=== PATIENT | female | born 1965 | race Caucasian/White ===

== ENCOUNTER 2017-07-15 15:29 | Emergency (ER) | payer SELFPAY ==
[~2017-07-15] VITALS: Ht 160 cm; Wt 64.0 kg
[~2017-07-15 15:29] MED LIST: AMOXICILLIN500 MG PO; AMOXIL500 MG OR; AUGMENTIN875TAB PO; B/P MED; BACTRIM DS1 TAB PO; COMBIVENT IN; DIOVAN HC1 OR; ELIMITE5 % EX; KEFLEX500 M1 PO; LASIX20 MG OR; LOPROX0.771 EX; LORTAB 7.5-3251 TAB PO; MUCINEX600 MG PO; SEPTRA DS1 TAB OR; ZITHROMAX250 MG PO
[2017-07-15 16:21] LABS: URINE BILIRUBIN - DIPSTICK NEGATIVE (NEGATIVE); URINE BLOOD DIPSTICK TRACE-INTACT (NEGATIVE); URINE CLARITY CLEAR; URINE COLOR YELLOW; URINE GLUCOSE - DIPSTICK NEGATIVE (NEGATIVE); URINE KETONE NEGATIVE (NEGATIVE); URINE LEUK ESTERASE NEGATIVE (NEGATIVE); URINE NITRITE - DIPSTICK NEGATIVE (Negative); URINE PROTEIN - DIPSTICK NEGATIVE (NEG-TRACE); URINE SPECIFIC GRAVITY >=1.030; URINE UROBILINOGEN - DIPSTICK 0.2 E.U./dL (0.2)
[2017-07-15 16:31] LABS: HEMATOCRIT 36.1 % (37.0-47.0); HEMOGLOBIN 12.2 g/dl (12.0-16.0); IMMATURE GRANULOCYTES 0.3 % (0.0-1.0); MEAN CELL VOLUME 97.6 fL CALC (80.0-100.0); MEAN CORPUSCULAR HGB CONC 33.8 g/L CALC (32.0-36.0); NEUT# 4.37 thou/uL (2.00-7.15); RED BLOOD COUNT 3.7 mill/uL (4.20-5.60); RED CELL DISTRI WIDTH 12.6 % (11.5-15.5)
[2017-07-15 16:58] LABS: ALKALINE PHOSPHATASE 85 u/l (38-126); ANION GAP 14 (6-22 (CALC)); BILIRUBIN, TOTAL 0.5 mg/dL (0.0-1.4); BUN 13 mg/dL (7-17); BUN/CREATININE RATIO 14 (12-20 (CALC)); CALCIUM 9.7 mg/dL (8.4-10.2); CARBON DIOXIDE 26 mmol/l (22-30); CHLORIDE 109 mmol/l (95-108); CREATININE 0.9 mg/dL (0.5-1.0); GFR > 60 ML/MIN (>=60 (CALC)); GFR FOR AFR.AMER. > 60 ML/MIN (>=60 (CALC)); GLUCOSE 115 mg/dL (65-105); POTASSIUM 4.1 mmol/l (3.5-5.1); SGOT/AST 18 u/l (14-36); SGPT/ALT 26 u/l (9-52); SODIUM 145 mmol/l (137-146); TOTAL PROTEIN 6.8 g/dL (6.3-8.2)
[2017-07-15 17:13] LABS: BETA-HCG, QUANT(RESULT NUMBER) <2 mIU/mL
[2017-07-15 20:00] VITALS: BP 168/66
== END 2017-07-15 20:00 | disposition home or self-care (01) | DRG 761 ==
LOC: ED 15:29
PROVIDERS: Family Medicine
DX: N93.8 Other specified abnormal uterine and vaginal bleeding (principal); F17.210 Nicotine dependence, cigarettes, uncomplicated

== ENCOUNTER 2017-10-20 12:07 | Emergency (ER) | payer SELFPAY ==
[~2017-10-20] VITALS: Ht 160 cm; Wt 63.0 kg
[2017-10-20 14:30] VITALS: BP 149/84
== END 2017-10-20 14:30 | disposition home or self-care (01) | DRG 607 ==
LOC: ED 12:07
DX: R22.41 Localized swelling, mass and lump, right lower limb (principal); M79.604 Pain in right leg; S80.811A Abrasion, right lower leg, initial encounter

== ENCOUNTER 2017-11-13 04:09 | Emergency (ER) | payer SELFPAY ==
[~2017-11-13] VITALS: Ht 160 cm; Wt 74.0 kg
[2017-11-13 04:37] LABS: HEMATOCRIT 35.5 % (37.0-47.0); HEMOGLOBIN 11.9 g/dl (12.0-16.0); IMMATURE GRANULOCYTES 0.1 % (0.0-1.0); MEAN CORPUSCULAR HGB 32.5 pG CALC (26.0-32.0); MEAN CORPUSCULAR HGB CONC 33.5 g/L CALC (32.0-36.0); NEUT# 4.73 thou/uL (2.00-7.15); RED BLOOD COUNT 3.66 mill/uL (4.20-5.60); RED CELL DISTRI WIDTH 12.2 % (11.5-15.5)
[2017-11-13 04:43] LABS: ANION GAP 15 (6-22 (CALC)); BUN 16 mg/dL (7-17); BUN/CREATININE RATIO 19 (12-20 (CALC)); CARBON DIOXIDE 26 mmol/l (22-30); CHLORIDE 104 mmol/l (95-108); CREATININE 0.8 mg/dL (0.5-1.0); GFR > 60 ML/MIN (>=60 (CALC)); GFR FOR AFR.AMER. > 60 ML/MIN (>=60 (CALC)); POTASSIUM 3.6 mmol/l (3.5-5.1); SODIUM 141 mmol/l (137-146)
[2017-11-13 04:59] LABS: COCAINE NEGATIVE (NEGATIVE); TETRAHYDROCANNABIONOL NEGATIVE (NEGATIVE)
[2017-11-13 05:00] LABS: BARBITURATES NEGATIVE (NEGATIVE); METHADONE NEGATIVE (NEGATIVE); OXCYCODONE NEGATIVE (NEGATIVE); TRICYLIC ANTIDEPRESSANTS NEGATIVE (NEGATIVE)
[2017-11-13] MEDS ORDERED: PERMETHRIN5 % EX (05:02)
[2017-11-13] MEDS ORDERED: DOXYCYCL HYC100 MG PO (05:02)
[2017-11-13 05:15] VITALS: BP 167/86
== END 2017-11-13 05:15 | disposition home or self-care (01) | DRG 607 ==
LOC: ED 04:09
PROVIDERS: Family Medicine
DX: B86 Scabies (principal); L03.113 Cellulitis of right upper limb; L03.114 Cellulitis of left upper limb

== ENCOUNTER 2018-07-17 16:21 | Emergency (ER) | payer SELFPAY ==
[~2018-07-17] VITALS: Ht 160 cm; Wt 64.0 kg
[~2018-07-17 16:21] MED LIST changes: +DOXYCYCL HYC100 MG PO; +PERMETHRIN5 % EX
[2018-07-17] MEDS ORDERED: NAPROSYN500 MG PO (17:42)
[2018-07-17 17:50] VITALS: BP 139/74
== END 2018-07-17 17:50 | disposition home or self-care (01) | DRG 563 ==
LOC: ED 16:21
DX: S63.92XA Sprain of unspecified part of left wrist and hand, initial encounter (principal); X58.XXXA Exposure to other specified factors, initial encounter; Y93.E1 Activity, personal bathing and showering; Y92.002 Bathroom of unspecified non-institutional (private) residence as the place of occurrence of the external cause

== ENCOUNTER 2019-01-23 07:14 | Emergency (ER) | payer SELFPAY ==
[~2019-01-23] VITALS: Ht 154.9 cm; Wt 59.1 kg
[~2019-01-23 07:14] MED LIST changes: +NAPROSYN500 MG PO
[2019-01-23] MEDS ORDERED: DOXYCYC MONO100 M2 PO (07:37)
[2019-01-23 07:41] VITALS: BP 161/78
[2019-01-23] MEDS ORDERED: ZPAK PO (07:43)
== END 2019-01-23 07:45 | disposition home or self-care (01) | DRG 153 ==
LOC: ED 07:14
DX: J06.9 Acute upper respiratory infection, unspecified (principal); F17.210 Nicotine dependence, cigarettes, uncomplicated

== ENCOUNTER 2019-04-26 13:53 | Emergency (ER) | payer SELFPAY ==
[~2019-04-26] VITALS: Ht 160 cm; Wt 68.1 kg
[~2019-04-26 13:53] MED LIST changes: +DOXYCYC MONO100 M2 PO; +ZPAK PO
[2019-04-26 14:11] VITALS: BP 187/81
== END 2019-04-26 15:24 | disposition home or self-care (01) | DRG 605 ==
LOC: ED 13:53
PROC: 2W3JX1Z Immobilization of Right Finger using Splint (ICD-10-PCS; principal; 2019-04-26)
DX: S60.410A Abrasion of right index finger, initial encounter (principal); F17.200 Nicotine dependence, unspecified, uncomplicated; W23.0XXA Caught, crushed, jammed, or pinched between moving objects, initial encounter; Y92.009 Unspecified place in unspecified non-institutional (private) residence as the place of occurrence of the external cause

== ENCOUNTER 2019-05-23 00:46 | Emergency (ER) | payer SELFPAY ==
[~2019-05-23] VITALS: Ht 160 cm; Wt 68.2 kg
[2019-05-23] MEDS ORDERED: KEFLEX500 M1 PO (01:38)
[2019-05-23 02:07] VITALS: BP 141/81
== END 2019-05-23 02:00 | disposition home or self-care (01) | DRG 605 ==
LOC: ED 00:46
DX: S61.217A Laceration without foreign body of left little finger without damage to nail, initial encounter (principal); M25.842 Other specified joint disorders, left hand; F17.200 Nicotine dependence, unspecified, uncomplicated; Z59.0 Homelessness; X99.1XXA Assault by knife, initial encounter

== ENCOUNTER 2019-08-21 07:58 | Emergency (ER) | payer SELFPAY ==
[~2019-08-21] VITALS: Ht 160 cm; Wt 79.0 kg
[2019-08-21 08:39] LABS: HEMATOCRIT 37.8 % (37.0-47.0); HEMOGLOBIN 12.6 g/dl (12.0-16.0); IMMATURE GRANULOCYTES 0.2 % (0.0-5.0); MEAN CELL VOLUME 96.9 fL CALC (80.0-100.0); MEAN CORPUSCULAR HGB 32.3 pG CALC (26.0-32.0); MEAN CORPUSCULAR HGB CONC 33.3 g/L CALC (32.0-36.0); NEUT# 3.39 thou/uL (2.00-7.15); RED BLOOD COUNT 3.9 mill/uL (4.20-5.60); RED CELL DISTRI WIDTH 12.6 % (11.5-15.5)
[2019-08-21 08:44] LABS: URINE BILIRUBIN - DIPSTICK NEGATIVE (NEGATIVE); URINE BLOOD DIPSTICK NEGATIVE (NEGATIVE); URINE COLOR YELLOW; URINE GLUCOSE - DIPSTICK NEGATIVE (NEGATIVE); URINE KETONE NEGATIVE (NEGATIVE); URINE LEUK ESTERASE NEGATIVE (NEGATIVE); URINE NITRITE - DIPSTICK NEGATIVE (Negative); URINE PROTEIN - DIPSTICK NEGATIVE (NEG-TRACE); URINE SPECIFIC GRAVITY 1.025; URINE UROBILINOGEN - DIPSTICK 0.2 E.U./dL (0.2)
[2019-08-21 08:52] LABS: ALKALINE PHOSPHATASE 86 u/l (38-126); ANION GAP 14 (6-22 (CALC)); BILIRUBIN, TOTAL 0.3 mg/dL (0.0-1.4); BUN 12 mg/dL (7-17); BUN/CREATININE RATIO 20 (12-20 (CALC)); CARBON DIOXIDE 25 mmol/l (22-30); CHLORIDE 107 mmol/l (95-108); CREATININE 0.6 mg/dL (0.5-1.0); GFR > 60 ML/MIN (>=60 (CALC)); GFR FOR AFR.AMER. > 60 ML/MIN (>=60 (CALC)); LIPASE 86 u/l (23-300); POTASSIUM 3.7 mmol/l (3.5-5.1); SGOT/AST 25 u/l (14-36); SODIUM 142 mmol/l (137-146); TOTAL PROTEIN 7.2 g/dL (6.3-8.2)
[2019-08-21] MEDS ORDERED: LOMOTIL2.5 MG PO (09:30)
[2019-08-21] MEDS ORDERED: METRONIDAZOL500 MG PO (09:30)
[2019-08-21 09:49] VITALS: BP 177/80
== END 2019-08-21 10:00 | disposition home or self-care (01) | DRG 392 ==
LOC: ED 07:58
DX: R11.2 Nausea with vomiting, unspecified (principal); R19.7 Diarrhea, unspecified; R10.9 Unspecified abdominal pain

== ENCOUNTER 2020-01-06 | Emergency (ER) | payer SELFPAY ==
[~2020-01-06] MED LIST changes: +LOMOTIL2.5 MG PO; +METRONIDAZOL500 MG PO
[2020-01-06] MEDS ORDERED: TRAMADOL HYDROC50 M1 PO (09:25)
[2020-01-06] MEDS ORDERED: CEPHALEXIN500 M1 PO (09:29)
== END 2020-01-06 09:40 | disposition home or self-care (01) | DRG 563 ==
PROC: 0H9 Skin and Breast, Drainage (ICD-10-PCS; principal; 2020-01-06)
DX: S92.422A Displaced fracture of distal phalanx of left great toe, initial encounter for closed fracture (principal); S90.212A Contusion of left great toe with damage to nail, initial encounter; F17.200 Nicotine dependence, unspecified, uncomplicated; W22.8XXA Striking against or struck by other objects, initial encounter

== ENCOUNTER 2020-02-04 | Emergency (ER) | payer SELFPAY ==
[~2020-02-04] MED LIST changes: +CEPHALEXIN500 M1 PO; +TRAMADOL HYDROC50 M1 PO
[2020-02-04 15:46] LABS: HEMATOCRIT 36.9 % (37.0-47.0); HEMOGLOBIN 12.5 g/dl (12.0-16.0); IMMATURE GRANULOCYTES 0.3 % (0.0-5.0); MEAN CELL VOLUME 94.9 fL CALC (80.0-100.0); MEAN CORPUSCULAR HGB 32.1 pG CALC (26.0-32.0); MEAN CORPUSCULAR HGB CONC 33.9 g/dL CAL (32.0-36.0); NEUT# 6.59 thou/uL (2.00-7.15); RED BLOOD COUNT 3.89 mill/uL (4.20-5.60); RED CELL DISTRI WIDTH 13.2 % (11.5-15.5)
[2020-02-04 16:14] LABS: ALBUMIN 4.8 g/dL (3.2-5.0); ALKALINE PHOSPHATASE 93 u/l (38-126); BUN 17 mg/dL (7-17); BUN/CREATININE RATIO 21 (12-20 (CALC)); CARBON DIOXIDE 25 mmol/l (22-30); CHLORIDE 101 mmol/l (95-108); CREATININE 0.8 mg/dL (0.5-1.0); GFR > 60 ML/MIN (>=60 (CALC)); GFR FOR AFR.AMER. > 60 ML/MIN (>=60 (CALC)); SGOT/AST 29 u/l (14-36); SODIUM 137 mmol/l (137-146); TOTAL PROTEIN 8.6 g/dL (6.3-8.2)
[2020-02-04 16:15] LABS: ANION GAP 16 (6-22 (CALC)); BILIRUBIN, TOTAL 0.9 mg/dL (0.0-1.4); POTASSIUM 4.5 mmol/l (3.5-5.1)
[2020-02-04 16:20] LABS: URINE BLOOD DIPSTICK NEGATIVE (NEGATIVE); URINE COLOR YELLOW; URINE GLUCOSE - DIPSTICK NEGATIVE (NEGATIVE); URINE KETONE 15 mg/dL (NEGATIVE); URINE LEUK ESTERASE NEGATIVE (NEGATIVE); URINE NITRITE - DIPSTICK NEGATIVE (Negative); URINE PH 5.5 (4.5-8.0); URINE PROTEIN - DIPSTICK NEGATIVE (NEG-TRACE); URINE SPECIFIC GRAVITY >=1.030; URINE UROBILINOGEN - DIPSTICK 0.2 E.U./dL (0.2)
[2020-02-04 16:24] LABS: COCAINE NEGATIVE (NEGATIVE); TETRAHYDROCANNABIONOL NEGATIVE (NEGATIVE); URINE BILIRUBIN - DIPSTICK NEGATIVE (NEGATIVE)
[2020-02-04 16:25] LABS: BARBITURATES NEGATIVE (NEGATIVE); METHADONE NEGATIVE (NEGATIVE); OXCYCODONE NEGATIVE (NEGATIVE); TRICYLIC ANTIDEPRESSANTS NEGATIVE (NEGATIVE)
[2020-02-04] MEDS ORDERED: MOTRIN400 MG PO (17:19)
== END 2020-02-04 17:35 | disposition home or self-care (01) | DRG 563 ==
PROVIDERS: Family Medicine
DX: S82.62XA Displaced fracture of lateral malleolus of left fibula, initial encounter for closed fracture (principal); S92.312A Displaced fracture of first metatarsal bone, left foot, initial encounter for closed fracture; M25.561 Pain in right knee; F17.210 Nicotine dependence, cigarettes, uncomplicated; W01.0XXA Fall on same level from slipping, tripping and stumbling without subsequent striking against object, initial encounter; Y92.410 Unspecified street and highway as the place of occurrence of the external cause

== ENCOUNTER 2021-06-15 19:23 | Emergency (ER) | payer SELFPAY ==
[~2021-06-15] VITALS: Ht 162.6 cm; Wt 68.0 kg
[~2021-06-15 19:23] MED LIST changes: +MOTRIN400 MG PO
[2021-06-15 22:05] VITALS: BP 161/82
== END 2021-06-15 22:05 | disposition home or self-care (01) | DRG 153 ==
LOC: ED 19:23
DX: J02.9 Acute pharyngitis, unspecified (principal); F17.200 Nicotine dependence, unspecified, uncomplicated; Z20.822 Contact with and (suspected) exposure to COVID-19

== ENCOUNTER 2021-08-30 14:33 | Emergency (ER) | payer SELFPAY ==
[~2021-08-30] VITALS: Ht 162.6 cm; Wt 90.0 kg
[2021-08-30 15:05] VITALS: BP 167/74
[2021-08-30] MEDS ORDERED: TRAMADOL HYDROC50 M1 PO (17:06)
[2021-08-30] MEDS ORDERED: MOTRIN400 MG/TAB PO (17:07)
== END 2021-08-30 17:15 | disposition home or self-care (01) | DRG 556 ==
LOC: ED 14:33
DX: M25.511 Pain in right shoulder (principal); F17.200 Nicotine dependence, unspecified, uncomplicated

== ENCOUNTER 2021-10-26 18:30 | Emergency (ER) | payer SELFPAY ==
[~2021-10-26] VITALS: Ht 162.6 cm; Wt 100.0 kg
[~2021-10-26 18:30] MED LIST changes: +MOTRIN400 MG/TAB PO
[2021-10-26 19:30] VITALS: BP 174/90
[2021-10-26] MEDS ORDERED: GUAIFENESIN AC PO (19:59)
[2021-10-26] MEDS ORDERED: AMOXICILLIN875 MG PO (19:59)
== END 2021-10-26 20:15 | disposition home or self-care (01) | DRG 203 ==
LOC: ED 18:30
DX: J20.9 Acute bronchitis, unspecified (principal); F17.210 Nicotine dependence, cigarettes, uncomplicated; Z20.822 Contact with and (suspected) exposure to COVID-19

== ENCOUNTER 2022-03-01 18:16 | Emergency (ER) | payer SELFPAY ==
[~2022-03-01] VITALS: Ht 162.6 cm; Wt 90.7 kg
[~2022-03-01 18:16] MED LIST changes: +AMOXICILLIN875 MG PO; +GUAIFENESIN AC PO
[2022-03-01 18:27] VITALS: BP 186/84
[2022-03-01 18:30] VITALS: BP 180/90
[2022-03-01] MEDS ORDERED: AMOX/K CLAV875 M1 PO (18:57)
[2022-03-01 19:26] VITALS: BP 186/84
== END 2022-03-01 19:30 | disposition home or self-care (01) | DRG 605 ==
LOC: ED 18:16
DX: S81.852A Open bite, left lower leg, initial encounter (principal); F17.200 Nicotine dependence, unspecified, uncomplicated; W54.0XXA Bitten by dog, initial encounter; Y92.009 Unspecified place in unspecified non-institutional (private) residence as the place of occurrence of the external cause

== ENCOUNTER 2022-10-03 13:01 | Emergency (ER) | payer SELFPAY ==
[~2022-10-03 13:01] MED LIST changes: +AMOX/K CLAV875 M1 PO
== END 2022-10-03 14:48 | disposition left against medical advice (07) | DRG 951 ==
LOC: ED 13:01 → LWOBS 14:30
DX: Z53.21 Procedure and treatment not carried out due to patient leaving prior to being seen by health care provider (principal)

== ENCOUNTER 2022-11-24 00:24 | Emergency (ER) | payer SELFPAY ==
[~2022-11-24] VITALS: Ht 162.6 cm; Wt 90.0 kg
[2022-11-24] MEDS ORDERED: AMOX/K CLAV875 M1 PO (02:15)
[2022-11-24 02:25] VITALS: BP 173/90
== END 2022-11-24 02:35 | disposition home or self-care (01) | DRG 605 ==
LOC: ED 00:24
PROC: 0HQGXZZ Repair Left Hand Skin, External Approach (ICD-10-PCS; principal; 2022-11-24)
DX: S61.452A Open bite of left hand, initial encounter (principal); W54.0XXA Bitten by dog, initial encounter

== ENCOUNTER 2023-02-05 12:54 | Emergency (ER) | payer SELFPAY ==
[~2023-02-05] VITALS: Ht 162.6 cm; Wt 82.0 kg
[2023-02-05] MEDS ORDERED: PREDNISONE20 MG PO ×2 (16:06→16:15)
[2023-02-05] MEDS ORDERED: ZYRTEC10 MG PO ×2 (16:06→16:15)
[2023-02-05] MEDS ORDERED: ZPAK PO ×2 (16:06→16:15)
[2023-02-05 16:26] VITALS: BP 148/81
[2023-02-05] MEDS ORDERED: PROAIR HFA IN (16:43)
== END 2023-02-05 16:30 | disposition home or self-care (01) | DRG 203 ==
LOC: ED 12:54
DX: J45.909 Unspecified asthma, uncomplicated (principal); I10 Essential (primary) hypertension; F17.210 Nicotine dependence, cigarettes, uncomplicated; Z59.00 Homelessness unspecified

== ENCOUNTER 2023-10-10 20:27 | Emergency (ER) | payer SELFPAY ==
[~2023-10-10] VITALS: Ht 162.6 cm; Wt 99.8 kg
[~2023-10-10 20:27] MED LIST changes: +PREDNISONE20 MG PO; +PROAIR HFA IN; +ZYRTEC10 MG PO
[2023-10-10 21:08] VITALS: BP 189/87
[2023-10-10 21:32] VITALS: BP 179/79
[2023-10-10 21:56] LABS: BASO% 0.5 % (0-3); EOS% 3.1 % (0-8); HEMATOCRIT 40.5 % (37.0-47.0); IMMATURE GRANULOCYTES 0.2 % (0.0-5.0); LYMPH% 40.4 % (15-41); MEAN CELL VOLUME 100.5 fL CALC (80.0-100.0); MEAN CORPUSCULAR HGB 32.3 pG CALC (26.0-32.0); MEAN CORPUSCULAR HGB CONC 32.1 g/dL CAL (32.0-36.0); MONO% 5.5 % (2-13); NEUT# 4.29 thou/uL (2.00-7.15); NEUT% 50.3 % (42-76); RED BLOOD COUNT 4.03 mill/uL (4.20-5.60); RED CELL DISTRI WIDTH 12.8 % (11.5-15.5)
[2023-10-10 22:01] VITALS: BP 135/56
[2023-10-10 22:03] LABS: URINE BILIRUBIN - DIPSTICK Negative (NEGATIVE); URINE BLOOD DIPSTICK Negative (NEGATIVE); URINE GLUCOSE - DIPSTICK Negative (NEGATIVE); URINE KETONE Negative (NEGATIVE); URINE LEUK ESTERASE Negative (NEGATIVE); URINE NITRITE - DIPSTICK Negative (Negative); URINE PROTEIN - DIPSTICK Negative (NEG-TRACE); URINE SPECIFIC GRAVITY >=1.030; URINE UROBILINOGEN - DIPSTICK 0.2 E.U./dL (0.2)
[2023-10-10 22:05] LABS: ALBUMIN 4.3 g/dL (3.2-5.0); ALKALINE PHOSPHATASE 134 u/l (38-126); AMYLASE 46 u/l (30-110); ANION GAP 9 (6-22 (CALC)); BILIRUBIN, TOTAL 0.3 mg/dL (0.02-1.3); BUN 17 mg/dL (7-17); BUN/CREATININE RATIO 24 (12-20 (CALC)); CARBON DIOXIDE 29 mmol/l (22-30); CHLORIDE 108 mmol/l (95-108); CREATININE 0.7 mg/dL (0.5-1.0); GFR FOR AFR.AMER. > 60 ML/MIN (>=60 (CALC)); GFR OTHER RACES > 60 ML/MIN (>=60 (CALC)); LIPASE 68 u/l (23-300); POTASSIUM 3.9 mmol/l (3.5-5.1); SGOT/AST 30 u/l (14-36); SODIUM 142 mmol/l (137-146); TOTAL PROTEIN 7.5 g/dL (6.3-8.2)
[2023-10-10 22:18] LABS: URINE COLOR Yellow
[2023-10-10 22:31] VITALS: BP 167/88
[2023-10-11] MEDS ORDERED: PROTONIX40 M2 PO (01:28)
[2023-10-11] MEDS ORDERED: LASIX 40 MG TAB40 MG PO (01:33)
[2023-10-11 01:51] VITALS: BP 162/97
== END 2023-10-11 01:49 | disposition home or self-care (01) | DRG 392 ==
LOC: ED 20:27
PROVIDERS: Emergency Medicine
DX: K29.00 Acute gastritis without bleeding (principal); I10 Essential (primary) hypertension; F17.210 Nicotine dependence, cigarettes, uncomplicated
CPT/HCPCS: Q9967

== ENCOUNTER 2024-05-27 09:56 | Emergency (ER) | payer SELFPAY ==
[~2024-05-27] VITALS: Ht 162.6 cm; Wt 136.0 kg
[~2024-05-27 09:56] MED LIST changes: +LASIX 40 MG TAB40 MG PO; +PROTONIX40 M2 PO
[2024-05-27 10:04] VITALS: BP 185/79
[2024-05-27 10:31] VITALS: BP 139/57
[2024-05-27 11:01] VITALS: BP 138/79
[2024-05-27] MEDS ORDERED: VENTOLIN HFA108 MCG PO (12:21)
[2024-05-27] MEDS ORDERED: PREDNISONE50 MG PO (12:21)
[2024-05-27 12:26] VITALS: BP 138/79
== END 2024-05-27 12:30 | disposition home or self-care (01) | DRG 153 ==
LOC: ED 09:56
DX: J06.9 Acute upper respiratory infection, unspecified (principal); I10 Essential (primary) hypertension; F17.200 Nicotine dependence, unspecified, uncomplicated; Z20.822 Contact with and (suspected) exposure to COVID-19

== ENCOUNTER 2024-06-30 10:27 | Observation (INO) | payer SELFPAY ==
[2024-06-30] VITALS (15 sets, daily range): BP systolic 101–187; BP diastolic 48–136
[~2024-06-30] VITALS: Ht 162.6 cm; Wt 100.0 kg
[~2024-06-30 10:27] MED LIST changes: +PREDNISONE50 MG PO; +VENTOLIN HFA108 MCG PO
[2024-06-30 11:05] LABS: BASO% 0.4 % (0-3); EOS% 2.5 % (0-8); HEMATOCRIT 42.3 % (37.0-47.0); HEMOGLOBIN 13.8 g/dl (12.0-16.0); IMMATURE GRANULOCYTES 0.1 % (0.0-5.0); LYMPH% 29.5 % (15-41); MEAN CELL VOLUME 100.2 fL CALC (80.0-100.0); MEAN CORPUSCULAR HGB 32.7 pG CALC (26.0-32.0); MEAN CORPUSCULAR HGB CONC 32.6 g/dL CAL (32.0-36.0); MONO% 5.5 % (2-13); NEUT# 5.14 thou/uL (2.00-7.15); RED BLOOD COUNT 4.22 mill/uL (4.20-5.60)
[2024-06-30 11:16] LABS: ALBUMIN 4.4 g/dL (3.2-5.0); ALKALINE PHOSPHATASE 90 u/l (38-126); BUN 15 mg/dL (7-17); BUN/CREATININE RATIO 22 (12-20 (CALC)); CARBON DIOXIDE 31 mmol/l (22-30); CHLORIDE 108 mmol/l (95-108); CREATININE 0.7 mg/dL (0.5-1.0); ESTIMATED GFR 101 ML/MIN (>=90 (CALC)); SGOT/AST 48 u/l (14-36); SODIUM 140 mmol/l (137-146); TOTAL PROTEIN 7.8 g/dL (6.3-8.2)
[2024-06-30 11:17] LABS: ANION GAP 6 (6-22 (CALC)); BILIRUBIN, TOTAL 0.8 mg/dL (0.02-1.3); POTASSIUM 4.7 mmol/l (3.5-5.1)
[2024-06-30] MEDS ORDERED: methylPREDNISolone SODIUM SUCC 125 MG/2 ML SDV IV ONE (11:30)
[2024-06-30] MEDS ORDERED: IPRATROPIUM-Albuterol 0.5MG-2.5MG/3 ML NEB ONE ×2 (11:30)
[2024-06-30] MEDS ORDERED: AZITHROMYCIN 500 MG in SODIUM CHLORIDE 0.9% 250 ML IV ONE (12:55)
[2024-06-30] MEDS ORDERED: MAGNESIUM HYDROXIDE 30 ML UDC PO PRN (13:00)
[2024-06-30] MEDS ORDERED: ACETAMINOPHEN 325 MG/TAB PO PRN (13:00)
[2024-06-30] MEDS ORDERED: IPRATROPIUM-Albuterol 0.5MG-2.5MG/3 ML NEB PRN (13:00)
[2024-06-30] MEDS ORDERED: NICOTINE TRANSDERMAL 21 MG/PATCH TD SCH (15:00)
[2024-06-30] MEDS ORDERED: AZITHROMYCIN 500 MG in SODIUM CHLORIDE 0.9% 250 ML IV SCH (16:30)
[2024-06-30] MEDS ORDERED: hydrALAZINE HCL 20 MG/ML VIAL(1 ML) IV PRN (20:45)
[2024-06-30] MEDS ORDERED: ENOXAPARIN SODIUM 40 MG/0.4 ML SYR SC SCH (21:00)
[2024-06-30] MEDS ORDERED: methylPREDNISolone Sod Succ 40 MG/ML SDV IV SCH (21:00)
[2024-07-01 00:21] VITALS: BP 149/87
[2024-07-01 04:20] VITALS: BP 123/54
[2024-07-01 04:22] LABS: ALBUMIN 4.3 g/dL (3.2-5.0); CREATININE 0.7 mg/dL (0.5-1.0); MAGNESIUM 1.9 mg/dL (1.6-2.3); POTASSIUM 3.9 mmol/l (3.5-5.1); TOTAL PROTEIN 7.3 g/dL (6.3-8.2)
[2024-07-01 04:29] LABS: BILIRUBIN, TOTAL 0.4 mg/dL (0.02-1.3)
[2024-07-01 04:40] LABS: BASO% 0.2 % (0-3); HEMATOCRIT 40.6 % (37.0-47.0); HEMOGLOBIN 13.2 g/dl (12.0-16.0); IMMATURE GRANULOCYTES 0.5 % (0.0-5.0); LYMPH% 9.6 % (15-41); MEAN CELL VOLUME 101.5 fL CALC (80.0-100.0); MEAN CORPUSCULAR HGB CONC 32.5 g/dL CAL (32.0-36.0); MONO% 1.2 % (2-13); NEUT# 7.19 thou/uL (2.00-7.15); NEUT% 88.5 % (42-76)
[2024-07-01 07:03] VITALS: BP 148/61
[2024-07-01 10:43] VITALS: BP 154/84
[2024-07-01] MEDS ORDERED: AMOX/K CLAV875 M1 PO (10:56)
[2024-07-01] MEDS ORDERED: PREDNISONE10 MG PO (10:57)
[2024-07-01] MEDS ORDERED: VENTOLIN HFA108 MCG IN (10:58)
== END 2024-07-01 12:52 | disposition home or self-care (01) | DRG 192 ==
LOC: ED 10:27 → ED-I 12:40 → ED 12:59 → MS2 13:00
PROVIDERS: Family Medicine; Nurse Practitioner Family; ADMIT Internal Medicine; ATTEND Internal Medicine
DX: J44.1 Chronic obstructive pulmonary disease with (acute) exacerbation (principal); R09.02 Hypoxemia; I10 Essential (primary) hypertension; E11.9 Type 2 diabetes mellitus without complications; E66.9 Obesity, unspecified; F17.210 Nicotine dependence, cigarettes, uncomplicated; Z20.822 Contact with and (suspected) exposure to COVID-19
CPT/HCPCS: G0378; J0456; J1650

== ENCOUNTER 2024-12-13 16:13 | Emergency (ER) | payer SELFPAY ==
[~2024-12-13] VITALS: Ht 162.6 cm; Wt 90.2 kg
[~2024-12-13 16:13] MED LIST changes: +PREDNISONE10 MG PO; +VENTOLIN HFA108 MCG IN
[2024-12-13] MEDS ORDERED: ALBUTEROL SUL0.083 % IN (16:30)
[2024-12-13] MEDS ORDERED: guaiFENesin-CODEINE 200-20 MG/10 ML UDC PO ONE (17:15)
[2024-12-13 17:25] LABS: URINE BILIRUBIN - DIPSTICK Negative (NEGATIVE); URINE BLOOD DIPSTICK Negative (NEGATIVE); URINE GLUCOSE - DIPSTICK Negative (NEGATIVE); URINE KETONE Trace mg/dL (NEGATIVE); URINE LEUK ESTERASE Negative (NEGATIVE); URINE NITRITE - DIPSTICK Negative (Negative); URINE PH 6.5 (4.5-8.0); URINE PROTEIN - DIPSTICK Negative (NEG-TRACE)
[2024-12-13 17:26] LABS: URINE COLOR Yellow
[2024-12-13 17:27] VITALS: BP 98/63
[2024-12-13 17:29] LABS: BASO% 0.6 % (0-3); EOS% 3.6 % (0-8); HEMATOCRIT 40.5 % (37.0-47.0); HEMOGLOBIN 13.3 g/dl (12.0-16.0); IMMATURE GRANULOCYTES 0.3 % (0.0-5.0); LYMPH% 27.6 % (15-41); MEAN CORPUSCULAR HGB 33.2 pG CALC (26.0-32.0); MEAN CORPUSCULAR HGB CONC 32.8 g/dL CAL (32.0-36.0); MONO% 9.6 % (2-13); NEUT# 3.72 thou/uL (2.00-7.15); NEUT% 58.3 % (42-76); RED BLOOD COUNT 4.01 mill/uL (4.20-5.60); RED CELL DISTRI WIDTH 13.2 % (11.5-15.5)
[2024-12-13 17:41] LABS: ALBUMIN 4.4 g/dL (3.2-5.0); ALKALINE PHOSPHATASE 108 u/l (38-126); ANION GAP 10 (6-22 (CALC)); BILIRUBIN, TOTAL 0.5 mg/dL (0.02-1.3); BUN 15 mg/dL (7-17); BUN/CREATININE RATIO 16 (12-20 (CALC)); CARBON DIOXIDE 32 mmol/l (22-30); CHLORIDE 102 mmol/l (95-108); ESTIMATED GFR 66 ML/MIN (>=90 (CALC)); POTASSIUM 4.1 mmol/l (3.5-5.1); SGOT/AST 49 u/l (14-36); SODIUM 140 mmol/l (137-146); TOTAL PROTEIN 7.7 g/dL (6.3-8.2)
[2024-12-13 17:46] VITALS: BP 115/62
[2024-12-13 18:01] VITALS: BP 128/57
[2024-12-13 18:15] VITALS: BP 144/75
[2024-12-13] MEDS ORDERED: ALBUTEROL SULFATE 8 GM INH IN ONE (18:25)
[2024-12-13] MEDS ORDERED: methylPREDNISolone SODIUM SUCC 125 MG/2 ML SDV IM ONE (18:25)
[2024-12-13] MEDS ORDERED: VENTOLIN HFA108 MCG IN (18:32)
[2024-12-13] MEDS ORDERED: BROMPHEN/PSEUDO1 SY1 PO (18:32)
[2024-12-13] MEDS ORDERED: PREDNISONE20 MG PO (18:32)
[2024-12-13 18:40] VITALS: BP 144/75
[2024-12-13] MEDS ORDERED: ALBUTEROL SULFATE 2.5 MG VIAL IN ONE (18:40)
== END 2024-12-13 18:44 | disposition home or self-care (01) | DRG 203 ==
LOC: ED 16:13
PROVIDERS: Nurse Practitioner Family
DX: J40 Bronchitis, not specified as acute or chronic (principal); J44.9 Chronic obstructive pulmonary disease, unspecified; E11.9 Type 2 diabetes mellitus without complications; I10 Essential (primary) hypertension; F17.210 Nicotine dependence, cigarettes, uncomplicated; Z20.822 Contact with and (suspected) exposure to COVID-19